=== PATIENT | female | born 1975 | race Caucasian/White ===

== ENCOUNTER 2016-12-26 07:34 | Day surgery (SDC) | payer OTHER ==
[2016-12-19 12:59] VITALS: BMI 31.8
--- NOTE | 2016-12-25 10:02 | HP ---
Admitting History and Physical - Primary Care Physician PCP: Reagan Terrell - Admission Chief Complaint: left phyllodes tumor History of Present Illness: 41 yo female noted to have a left palpable mass on self exam x one year that has increased in size. US was c/w a 2.9 cm mass. US guides core was c/w a left 4 oclock benign lesion with phyllodes features. Patient is now presenting for a left breast WE. History Source: Patient Limitations to Obtaining History: No Limitations - Past Medical History Pulmonary: Yes: Asthma ...LMP Comment: 12/18/16 ...: No Infectious Disease: Yes: HIV (2003) - Past Surgical History Past Surgical History: Yes: Cholecystectomy (2016) Additional Past Surgical History: right lower extremity fx repair (2015) LEEP (2005-benign) Right exc of accessory breast tissue - Advance Directives Advance Directives: Yes: Health Care Proxy - Smoking History Smoking history: Current every day smoker Have you smoked in the past 12 months: Yes Aproximately how many cigarettes per day: 10 - Alcohol/Substance Use Hx Alcohol Use: No Home Medications - Allergies Allergies/Adverse Reactions: Allergies Allergy/AdvReac Type Severity Reaction Status Date / Time azithromycin [From Zithromax] Allergy Intermediate Hives Verified 12/19/16 12:59 sulfamethoxazole Allergy Intermediate Hives Verified 12/19/16 12:59 [From Bactrim] trimethoprim [From Bactrim] Allergy Intermediate Hives Verified 12/19/16 12:59 egg AdvReac Intermediate VOMITING, Verified 12/19/16 13:00 STOMACH PAIN - Home Medications Home Medications: Ambulatory Orders Emtricitab/Rilpiviri/Tenof Ala [Odefsey Tablet] 1 each PO HS 12/19/16 Multivitamins [Tab-A-Vit -] 1 tab PO DAILY 12/19/16 Omeprazole Magnesium [Prilosec] 10 mg PO DAILY 12/19/16 Salmeterol/Fluticasone [Advair 250Mcg/50Mcg -] 1 inh IH DAILY 12/19/16 Family Disease History - Family Disease History Other Family History: maternal aunt- ? ovarian cancer Review of Systems - Review of Systems Constitutional: reports: No Symptoms Cardiovascular: reports: No Symptoms Gastrointestinal: reports: No Symptoms Physical Examination Constitutional: Yes: Well Nourished, Calm Cardiovascular: Yes: WNL Respiratory: Yes: WNL Breast(s): Yes: Other (Left lower outer quadrant palpable mass approx 2 cm. Breasts are otherwise diffusely nodular without suspicious masses or adenopathy. ) Problem List - Problems (1) Phyllodes tumor of breast Assessment/Plan: Plan Left breast WE Code(s): D48.60 - NEOPLASM OF UNCERTAIN BEHAVIOR OF UNSPECIFIED BREAST
[2016-12-26] MEDS ORDERED: LIDOCAINE HCL 1%, 10 MG/ML (20ML VIAL) ONE (10:05)
[2016-12-26] MEDS ORDERED: GUM MASTIC/STORAX/MSAL/ALCOHOL 1 DRP DROPSBTL MC ONE (10:05)
[2016-12-26] MEDS ORDERED: MIDAZOLAM HCL 2 MG/2 ML SINGLE DOSE VIAL ONE (10:10)
[2016-12-26] MEDS ORDERED: PROPOFOL 20 ML ONE ×2 (10:31→10:57)
[2016-12-26] MEDS ORDERED: ACETAMINOPHEN 325 MG TABLET (FP) PO PRN (11:04)
[2016-12-26] MEDS ORDERED: oxyCODONE HCL 5 MG TABLET PO PRN (11:05)
[2016-12-26] MEDS ORDERED: ONDANSETRON 4 MG/2 ML VIAL IVPUSH PRN (11:05)
[2016-12-26] MEDS ORDERED: KETOROLAC TROMETHAMINE 30 MG/1 ML VIAL IVPUSH PRN (11:32)
[2016-12-26] MEDS ORDERED: DEXTROSE 5%-0.45% SALINE 1,000 ML IV SCH (11:45)
[2016-12-26] MEDS ORDERED: ONDANSETRON 4 MG/2 ML VIAL ONE (12:03)
[2016-12-26] MEDS ORDERED: KETOROLAC TROMETHAMINE 30 MG/1 ML VIAL ONE (12:04)
[2016-12-26] MEDS ORDERED: ONDANSETRON 4 MG/2 ML VIAL IVPB PRN (12:06)
[2016-12-26] MEDS ORDERED: ONDANSETRON 4 MG/2 ML VIAL IVPUSH ONE (12:10)
[2016-12-26] MEDS ORDERED: KETOROLAC TROMETHAMINE 30 MG/1 ML VIAL IVPUSH ONE (12:10)
[2016-12-26 13:14] VITALS: BP 120/72; PULSE 86; TEMP 98.2
--- NOTE | 2016-12-26 14:52 | OP ---
DATE OF OPERATION: 12/26/2016 PREOPERATIVE DIAGNOSIS: Left breast mass, rule out phyllodes tumor. POSTOPERATIVE DIAGNOSIS: Left breast mass, rule out phyllodes tumor. PROCEDURE: Left breast partial mastectomy. ANESTHESIA: General, intubated. ATTENDING SURGEON: Maddy Terrell MD DOORS PREFITTER: VERONICA Mukherjee ESTIMATED BLOOD LOSS: Minimal. COMPLICATIONS: None. PROCEDURE: Patient was made aware of the risks and benefits of the procedure and consented. She was placed in supine position. After general anesthesia was induced, the patient was intubated. The operative site was prepped and draped in the usual sterile fashion. Intraoperative ultrasound confirmed the presence of the indexed lesion where I palpated it. A curvilinear para-areolar incision was then made using electrocautery. Tissues were dissected down to the mass. The mass was sharply grasped and tissues including the mass and around it were sharply excised and submitted with a short suture superior, long suture lateral, for margin assessment. The wound was copiously irrigated with normal saline, hemostasis maintained by electrocautery. The wound was then closed with deep 3-0 Vicryl followed by running subcuticular 4-0 Monocryl. Steri-Strips and a sterile bandage was applied. The patient, having tolerated the procedure, was transferred to the recovery room in excellent condition. MADDY TERRELL M.D. [id number]
--- NOTE | 2016-12-28 12:29 | PATH ---
Surgical Pathology Report Patient Name: YONAS FIGUEROA [facility]. Rec. #: [id number] /Age/Gender: 1975 (Age: 41) / F Account: [id number] Location: [facility] Taken: 12/26/2016 Received: 12/26/2016 Reported: 12/28/2016 Physicians: Reagan Terrell M.D. Specimen(s) Received LEFT BREAST WIDE EXCISION Clinical History Cellular fibroadenoma Final Diagnosis BREAST, LEFT, WIDE EXCISION: FIBROADENOMA. Electronically Signed Laura Chamorro M.D. Gross Description Received in formalin, labeled "left breast wide excision," is a 3.7 x 3.0 x 1.6 cm. mckeon-yellow, irregular, portion of fibroadipose tissue. There is a short suture marking the superior aspect and a long suture marking the lateral aspect, per the surgeon. There is no skin present. The specimen is inked as follows: superior and lateral blue; inferior green; medial yellow; anterior red; deep black. The specimen is serially sectioned from superior to inferior. Sectioning reveals a 2.2 x 2 0.x 1.4 cm mckeon, rubbery, well-circumscribed mass abutting the lateral, anterior and deep margins. The remaining margins appear widely clear of the mass. The specimen is entirely and sequentially submitted in 8 cassettes with the superior margin in cassette 1 and the inferior margin in cassette 8. Time to formalin fixation: 3 minutes Total formalin fixation time: Approximately 7 hours. /12/26/201612/26/2016
== END 2016-12-26 13:16 | disposition home or self-care (01) ==
LOC: FASU 07:34
PROVIDERS: ATTEND Surgery Surgical Oncology
PROC: 0HBU0ZZ Excision of Left Breast, Open Approach (ICD-10-PCS; principal; 2016-12-26 10:56)
DX: N63 Unspecified lump in breast (principal); D24.2 Benign neoplasm of left breast; Z21 Asymptomatic human immunodeficiency virus [HIV] infection status; J45.909 Unspecified asthma, uncomplicated
CPT/HCPCS: 84703; 88307-TC; 94760